=== PATIENT | male | born 1960 | race Caucasian/White ===

== ENCOUNTER → 2019-08-10 | Outpatient (CLI) | payer OTHER ==
--- NOTE | 2019-08-10 12:19 | RAD ---
EXAM: Right knee, 2 views. HISTORY: Arthritis. COMPARISON: None. FINDINGS: 2 views of the right knee are obtained. There is no fracture, dislocation or subluxation. There is no significant joint effusion. IMPRESSION: No acute osseous finding. Electronically signed by: Ernestine Shah MD (08/10/2019 12:16 PM) [id number]
--- NOTE | 2019-08-10 13:18 | RAD ---
EXAM: Lumbar spine, 3 views. HISTORY: Pain. COMPARISON: None. FINDINGS: 3 views of the lumbar spine are obtained. There is minimal lumbar dextrocurvature at L1. There is grade 1 anterolisthesis of L5 on S1. There is degenerative endplate remodeling with osteophytosis and facet arthropathy predominantly at L5-S1, and to a lesser extent, L4-L5. IMPRESSION: 1. Degenerative change at the lower lumbar levels. 2. No acute osseous finding. Electronically signed by: Ernestine Shah MD (08/10/2019 1:15 PM) [place] [id number]
== END | disposition home or self-care (01) ==
LOC: PF 09:56
PROVIDERS: ATTEND Surgery
DX: M43.17 Spondylolisthesis, lumbosacral region (principal); M47.816 Spondylosis without myelopathy or radiculopathy, lumbar region; M12.88 Other specific arthropathies, not elsewhere classified, other specified site; J44.9 Chronic obstructive pulmonary disease, unspecified; M19.90 Unspecified osteoarthritis, unspecified site; E11.9 Type 2 diabetes mellitus without complications; G62.9 Polyneuropathy, unspecified; G25.81 Restless legs syndrome
CPT/HCPCS: 72100; 73560; 94010